=== PATIENT | female | born 1965 | race Caucasian/White ===

== ENCOUNTER 2017-03-22 16:18 | Emergency (ER) | payer MEDICAID ==
[~2017-03-22] VITALS: Ht 162.6 cm; Wt 105.0 kg
[~2017-03-22 16:18] MED LIST: HYDR-883 PO; LACT10SO28 PO; LEVO75TA PO; PROP20TA PO; SPIR25TA3 PO
[2017-03-22] MEDS ORDERED: SODIUM CHLORIDE FLUSH 10ML SYR IVF ONE (16:30)
[2017-03-22] MEDS ORDERED: METOCLOPRAMIDE 5 MG/ML, 2ML IVPush ONE (16:30)
[2017-03-22 17:09] LABS: ASPARTATE AMINO TRANSFERASE 57 U/L (15-37); BLOOD UREA NITROGEN 14 mg/dL (7-18)
[2017-03-22] MEDS ORDERED: METOCLOPRAMIDE 5 MG/ML, 2ML ONE (18:49)
[2017-03-22] MEDS ORDERED: FENTANYL PF 100 MCG/2ML ONE (18:49)
[2017-03-22] MEDS ORDERED: OMNIPAQUE 350 MG/ML, 100ML BOTTLE ONE (18:54)
[2017-03-22] MEDS ORDERED: FENTANYL PF 100 MCG/2ML IV ONE (19:00)
[2017-03-22 19:14] VITALS: BP 127/66
== END 2017-03-22 20:26 | disposition home or self-care (01) ==
LOC: ED 18:36
DX: R10.31 Right lower quadrant pain (principal); K74.60 Unspecified cirrhosis of liver; Z88.0 Allergy status to penicillin; Z88.8 Allergy status to other drugs, medicaments and biological substances; Z88.6 Allergy status to analgesic agent; Z88.1 Allergy status to other antibiotic agents; Z90.49 Acquired absence of other specified parts of digestive tract; Z90.710 Acquired absence of both cervix and uterus
CPT/HCPCS: 36415; 74177; 80053; 81003; 84703; 85025; 96374; 96375; 99285; J2765; J3010; Q9967